=== PATIENT | male | born 1995 | race Two or more races ===

== ENCOUNTER 2020-01-09 01:34 | Emergency (ER) | payer OTHER ==
[~2020-01-09] VITALS: Ht 170.2 cm; Wt 80.7 kg
[2020-01-09 01:38] VITALS: BP 127/89
--- NOTE | 2020-01-09 02:08 | NUR ---
PT MEDICALLY CLEAR FOR D/C. AMBLATING WITH STEADY GAITS. PT REFUSED AFTER CARE INSTRUCTIONS AND REFUSED TO SIGN THE PAPER WORK. PT STATED HE IS NOT HOMELESS AND HAVE A PLACE TO STAY. PT WALKED OUT IN STABLE CONDITION.
--- NOTE | 2020-01-09 02:16 | NUR ---
PT OK TO DISCHARGE PER DR OWUSU. Patient discharged to home in stable condition. Written and verbal after care instructions given. Patient verbalizes understanding of instruction.Patient is awake and alert to self, day, and place. PT ambulatory with a steady gait
== END 2020-01-09 02:18 | disposition home or self-care (01) ==
LOC: ER 01:37
DX: F10.129 Alcohol abuse with intoxication, unspecified (principal); Y90.9 Presence of alcohol in blood, level not specified

== ENCOUNTER 2020-01-09 04:00 | Emergency (ER) | payer OTHER ==
[~2020-01-09] VITALS: Ht 157.5 cm; Wt 88.0 kg
[2020-01-09] MEDS ORDERED: ACETAMINOPHEN ES 500 MG TABLET ONE (04:18)
--- NOTE | 2020-01-09 04:18 | NUR ---
PT WALKED OUT OF HIS ROOM . COMPLAINING OF H/A AND REQUESTING TYLENOL. MD MADE AWARE WITH AN ORDER FOR TYLENOL. NOTED
--- NOTE | 2020-01-09 04:20 | NUR ---
PT REFUSED EKG.
--- NOTE | 2020-01-09 04:23 | NUR ---
PT IS LAUGHING AND TALKING ON HIS CELL PHONE. NO S/S OF PAIN AT THIS TIME.
[2020-01-09] MEDS ORDERED: ACETAMINOPHEN ES 500 MG TABLET PO ONE (04:30)
--- NOTE | 2020-01-09 05:18 | NUR ---
PT REQUESTED WATER AND TO HAVE HIS CELL PHONE CHARGED. CELL PHONE WAS CHARGING, BUT PT WANTED TO "TALK TO HIS HOMIE". PT STATED THAT HIS FRIEND IS COMING TO PICK HIM UP. Patient discharged to home in stable condition. Written and verbal after care instructions given. Patient verbalizes understanding of instruction. PT AMBULATED OUT TO THE LOBBY WITH A STEADY GAIT. PT IS WAITING FOR HIS FRIEND TO PICK HIM UP.
[2020-01-09 05:20] VITALS: BP 138/89
== END 2020-01-09 05:20 | disposition home or self-care (01) ==
LOC: ER 04:01
DX: R07.89 Other chest pain (principal); F10.129 Alcohol abuse with intoxication, unspecified; I10 Essential (primary) hypertension; Y90.9 Presence of alcohol in blood, level not specified
CPT/HCPCS: 71045-TC